=== PATIENT | male | born 1990 | race Caucasian/White ===

== ENCOUNTER 2024-12-16 13:38 | Emergency (ER) | payer MEDICAID ==
[~2024-12-16] VITALS: Ht 165.1 cm; Wt 111.0 kg
[2024-12-16 14:17] VITALS: O2SAT 100
[2024-12-16 14:46] LABS: HEMATOCRIT 39.2 % (42.0-52.0); MEAN CORPUSCULAR HEMOGLOBIN 22.2 pg (28.0-32.0); MEAN CORPUSCULAR HGB CONC 30.6 g/dL (31.0-37.0); MEAN CORPUSCULAR VOLUME 72.4 fL (80.0-94.0); PLATELET 357 x1000/uL (130-400); RED BLOOD CELL COUNT 5.41 mill/uL (4.7-6.1); WHITE BLOOD COUNT 10.8 x1000/uL (4.5-11.0)
[2024-12-16 14:54] LABS: CHLORIDE 108 mEq/L (98-107); POTASSIUM 3.7 mEq/L (3.5-5.1)
[2024-12-16 14:55] LABS: SODIUM 142 mEq/L (136-145)
[2024-12-16 14:56] LABS: CALCIUM 9.6 mg/dL (8.7-10.4); CARBON DIOXIDE 29 mEq/L (21-32)
[2024-12-16 15:01] LABS: CREATININE 0.9 mg/dL (0.6-1.3); GLUCOSE 89 mg/dL (70-105); UREA NITROGEN BLOOD 10 mg/dL (9-23)
[2024-12-16 15:03] LABS: TROPONIN I HIGH SENSITIVITY < 4 ng/L (3.0-53)
[2024-12-16] MEDS: CLONIDINE 0.1MG TABLET PO NR (15:19)
[2024-12-16] MEDS: ASPIRIN 325MG EC TABLET PO ONE (16:02)
[2024-12-16] MEDS ORDERED: HYDR-2988 MT (16:16)
[2024-12-16 16:46] VITALS: BP 149/98; PULSE 88; RESP 18; TEMP 36.8; O2SAT 99
== END 2024-12-16 16:47 | disposition home or self-care (01) ==
LOC: ER 13:38
DX: I16.0 Hypertensive urgency (principal); Z98.84 Bariatric surgery status; Z79.899 Other long term (current) drug therapy
CPT/HCPCS: 80048; 85027; 84484; 36415; 71045; 93005; 99285; Z7610